=== PATIENT | female | born 1945 | race Caucasian/White ===

== ENCOUNTER 2016-12-15 09:29 | Outpatient (CLI) | payer MEDICARE ==
[2016-12-15 13:09] LABS: ALT (SGPT) 71 U/L (0-55); AST (SGOT) 37 U/L (5-34); Alkaline Phosphatase 140 U/L (40-150); Anion Gap 16 mmol/L (10-20); BUN (Urea Nitrogen) 14 mg/dL (9.8-20.1); Bilirubin, Direct 0.2 mg/dL (0.1-0.3); Bilirubin, Total 0.6 mg/dL (0.2-1.2); Calc. Creatinine Clearance 0 mL/min (70-130); Calcium 9.8 mg/dL (7.8-10.44); Carbon Dioxide 24 mmol/L (23-31); Chloride 106 mmol/L (98-107); Estimated GFR-MDRD 46; LDL Cholesterol, Calculated 143 mg/dL; Protein, Total 7.7 g/dL (5.8-8.1)
[2016-12-15 13:16] LABS: #Basophils 0.1 thou/uL (0.0-0.2); #Eosinphils 0.2 thou/uL (0.0-0.7); #Lymphocytes 2.5 thou/uL (1.20-3.40); #Monocytes 0.4 thou/uL (0.11-0.59); #Neutrophils 5.1 thou/uL (1.40-6.50); %Basophils 1.6 % (0.0-1.0); %Eosinophils 2.4 % (0.0-10.0); %Lymphocytes 30.2 % (21.0-51.0); Hematocrit 48.2 % (36.0-47.0); Mean Platelet Volume 6.6 fL (7.4-10.4); Red Blood Cell (RBC) Count 5.09 mill/uL (4.20-5.40); White Blood Cell (WBC) Count 8.3 thou/uL (4.8-10.8)
[2016-12-15 13:37] LABS: Hemoglobin A1c 5.2 % (4.0-6.0)
== END 2016-12-15 09:30 | disposition home or self-care (01) ==
LOC: NAVSJIPCSP 09:29
PROVIDERS: ATTEND Family Medicine
DX: N20.0 Calculus of kidney (principal); J40 Bronchitis, not specified as acute or chronic; I10 Essential (primary) hypertension; K76.0 Fatty (change of) liver, not elsewhere classified; Z79.899 Other long term (current) drug therapy
CPT/HCPCS: 36415; 80048; 80061; 80076; 83036; 84443; 85025

== ENCOUNTER 2017-05-19 09:10 | Outpatient (CLI) | payer MEDICARE ==
[2017-05-19 12:59] LABS: ALT (SGPT) 22 U/L (8-55); AST (SGOT) 19 U/L (5-34); Albumin 4.2 g/dL (3.4-4.8); Alkaline Phosphatase 88 U/L (40-150); Bilirubin, Direct 0.2 mg/dL (0.1-0.3); Bilirubin, Total 0.5 mg/dL (0.2-1.2)
[2017-05-19 18:06] LABS: HBCM Index 0.06 S/CO (0-0.79); HBSAg Index 0.19 S/CO (0-0.99); Hep A IgM AB Non-Reactive (NonReactive); Hep A IgM S/CO 0.09 S/CO (0-0.79); Hep B Surf Ag Non-Reactive S/CO (NonReactive); Hep C IgG Ab Non-Reactive (NonReactive); Hep C Index 0.07 S/CO (0-0.79); Hepatitis B Core IGM Abs Non-Reactive (NonReactive)
== END 2017-05-19 09:11 | disposition home or self-care (01) ==
LOC: NAVSJIPCSP 09:10
PROVIDERS: ATTEND Family Medicine
DX: R74.8 Abnormal levels of other serum enzymes (principal)
CPT/HCPCS: 36415; 80074; 80076

== ENCOUNTER 2018-05-16 12:50 | Outpatient (CLI) | payer MEDICARE ==
--- NOTE | 2018-05-16 13:35 | RAD ---
CHEST TWO VIEWS: HISTORY: Bronchitis. COMPARISON: 02/06/2013 FINDINGS: The cardiac silhouette and the pulmonary vasculature are at the upper limits of normal. The mediasti num is midline with aortic calcification and postoperative changes. No confluent air space consolida tion, pneumothorax, or pleural fluid. IMPRESSION: 1. Borderline cardiomegaly and pulmonary vascular congestion. 2. Atherosclerosis. POS: [facility]
== END 2018-05-16 12:51 | disposition home or self-care (01) ==
LOC: NAV RAD 12:50
PROVIDERS: ATTEND Family Medicine
DX: J06.9 Acute upper respiratory infection, unspecified (principal); J04.0 Acute laryngitis; J40 Bronchitis, not specified as acute or chronic; J81.1 Chronic pulmonary edema; I51.7 Cardiomegaly; I70.0 Atherosclerosis of aorta
CPT/HCPCS: 71046

== ENCOUNTER 2018-06-01 13:03 | Outpatient (CLI) | payer MEDICARE ==
--- NOTE | 2018-06-01 13:31 | RAD ---
TWO VIEWS CHEST: Comparison: 05-16-18 History: Bronchitis and cough. FINDINGS: Two views of the chest shows an enlarged but stable cardiomediastinal silhouette. The patient is stat us post CABG. There is no evidence of consolidation, mass, or pleural effusion. IMPRESSION: No evidence of acute cardiopulmonary disease. POS: [facility]
== END 2018-06-01 13:04 | disposition home or self-care (01) ==
LOC: NAV ERS 13:03
PROVIDERS: ATTEND Family Medicine
DX: J06.9 Acute upper respiratory infection, unspecified (principal); J40 Bronchitis, not specified as acute or chronic; R05 Cough
CPT/HCPCS: 71046

== ENCOUNTER 2021-03-20 09:54 | Outpatient (CLI) | payer MEDICARE | END 2021-03-20 09:55 | disposition home or self-care (01) | LOC: NAV RAD 09:54 | PROVIDERS: ATTEND Family Medicine | DX: S96.912A Strain of unspecified muscle and tendon at ankle and foot level, left foot, initial encounter (principal) ==